=== PATIENT | female | born 1970 | race Two or more races ===

== ENCOUNTER 2022-11-01 23:54 | Emergency (ER) | payer MEDICAID, OTHER ==
[~2022-11-01] VITALS: Ht 160 cm; Wt 90.8 kg
[2022-11-02] MEDS ORDERED: PHENAZOPYRIDINE HCL 100 MG TAB PO ONE (00:30)
[2022-11-02] MEDS ORDERED: ACETAMINOPHEN 500 MG TAB PO ONE (00:30)
[2022-11-02 01:33] LABS: Urine Bacteria NONE SEEN /hpf (None Seen); Urine Blood 3+ /uL (Negative); Urine Specific Gravity 1.008 (1.001-1.035); Urine WBC 402 /hpf (0 - 5); Urine WBC Clumps PRESENT /hpf (None Seen)
[2022-11-02] MEDS ORDERED: cefTRIAXone SOD 1,000 MG VL IM ONE (02:00)
[2022-11-02] MEDS ORDERED: ACET-1079 PO (02:06)
[2022-11-02] MEDS ORDERED: PHEN-1044 PO (02:06)
[2022-11-02] MEDS ORDERED: NITR-87 PO (02:06)
[2022-11-02 06:13] VITALS: BP 113/69
== END 2022-11-02 06:26 | disposition home or self-care (01) ==
LOC: ER 23:54
DX: N39.0 Urinary tract infection, site not specified (principal)
CPT/HCPCS: 81001; 96372; 99283; J0696

== ENCOUNTER 2024-06-23 07:46 | Emergency (ER) | payer OTHER ==
[~2024-06-23] VITALS: Ht 160 cm; Wt 93.0 kg
[~2024-06-23 07:46] MED LIST: ACET-1079 PO; NITR-87 PO; PHEN-1044 PO
[2024-06-23 08:58] LABS: Urine Bacteria FEW /hpf (None Seen); Urine Blood 3+ /uL (Negative); Urine Clarity Clear (Clear); Urine Color Dark-Yellow (Yellow); Urine Protein, UAD 1+ (Negative); Urine Specific Gravity 1.003 (1.001-1.035); Urine Urobilinogen Normal (Negative); Urine WBC 69 /hpf (0 - 5)
[2024-06-23] MEDS ORDERED: BACDST PO (09:21)
[2024-06-23] MEDS: cefTRIAXone SOD 1,000 MG VL IM ONE (09:51)
[2024-06-23 10:00] VITALS: BP 138/70; PULSE 70; RESP 14; TEMP 97.8; O2SAT 97
== END 2024-06-23 10:23 | disposition home or self-care (01) ==
LOC: ER 07:46
DX: N39.0 Urinary tract infection, site not specified (principal); Z79.899 Other long term (current) drug therapy
CPT/HCPCS: 81001; 96372; 99283; J0696

== ENCOUNTER 2024-11-18 08:04 | Emergency (ER) | payer OTHER ==
[~2024-11-18 08:04] MED LIST changes: +BACDST PO
== END 2024-11-18 08:16 | disposition left against medical advice (07) ==
LOC: ER 08:04
DX: R09.81 Nasal congestion (principal); R50.9 Fever, unspecified; R05.9 Cough, unspecified; Z53.21 Procedure and treatment not carried out due to patient leaving prior to being seen by health care provider